=== PATIENT | female | born 1965 | race Caucasian/White ===

== ENCOUNTER → 2016-05-16 | Outpatient (CLI) | payer BC ==
[~2016-05-16] MED LIST: FRN; TEMA15CA4 PO; TRAM-10 PO
[2016-05-16 19:07] LABS: THYROID STIMULATING HORMONE 0.544 uIu/ml (0.300-4.500)
== END | disposition home or self-care (01) ==
LOC: C.LABMFLN 11:41
PROVIDERS: ATTEND Family Medicine
DX: R63.5 Abnormal weight gain (principal)